=== PATIENT | female | born 1995 | race Caucasian/White ===

== ENCOUNTER 2022-01-17 16:03 | Emergency (ER) | payer MEDICAID, SELFPAY ==
[2022-01-17 16:09] VITALS: BP 149/88; PULSE 136; RESP 18; TEMP 36.8; O2SAT 99
--- NOTE | 2022-01-18 12:51 | NUR.NOTE ---
Nursing Note: Accessed patient chart to determine how many EKG orders were in the chart from the ED. There was an outstanding EKG in ordered status. There are no EKG's in the [employer] system that are outstanding. EKG order was deleted.
--- NOTE | 2022-01-19 08:11 | ED.GENADUL_ITS ---
Discharge Plan Disposition Patient Disposition: Against Medical Advise Condition: Stable Discharge Details Clinical Impression: Abscess Primary Care Provider: Unknown,Unknown ED Provider: Verónica Hagan Home Meds and New Rx's Prescriptions: New doxycycline hyclate 100 mg tablet 100 mg PO BID Qty: 20 0RF Discharge Instructions Instructions: Abscess (ED) Additional Instructions: warm compresses antibiotic until completed recheck in 48 hours if no improvement or worsening return earlier with new or worsening complaints Referrals: Laura Freeman [Emergency Nurse] - Discharge Data Discharge Date/Time-TO BE ENTERED AT DEPARTURE: 01/17/22 17:07 Medical Decision Making Of note, patient was quite tachycardic, she does endorse using cocaine this morning. She denies any chest pain or shortness of breath Tachycardia I did recommend an EKG and laboratory work, she has declined fully alert, oriented, of decisional capacity That she also refused to wait for an incision and drainage, she was placed on antibiotics and will return at her earliest ability Return precautions zay and patient expressed understanding Medical Records Medical records reviewed: Yes I reviewed the patient's medical records. Lab Data Lab results reviewed: Yes I reviewed the patient's lab results. Sign Out No HPI General Date/Time Provider Initiated Documentation: 01/17/22 16:32 . HPI Narrative: This 26-year-old female presents with left-sided facial swelling. She states it started approximately a week ago. She denies any fever or chills. She states she developed swelling to her left eyelid and left side of her face yesterday. She declined having been on recent antibiotics. She has not attempted any interventions. She describes a burning discomfort to affected area. She denies any illicit drug use. Related Data Home Medications Medication Instructions Recorded Confirmed doxycycline hyclate 100 mg tablet 100 mg PO BID #20 tabs 01/17/22 Previous Rx's Medication Instructions Recorded doxycycline hyclate 100 mg tablet 100 mg PO BID #20 tabs 01/17/22 Allergies Allergy/AdvReac Type Severity Reaction Status Date / Time No Known Allergies Allergy Unverified 01/17/22 16:19 General Stated Complaint: FacialProb ANDREW: 4 Review of Systems Narrative: Review of systems obtained x7 and negative aside from indication PFSH All Active Problems (Updated 01/17/22 @ 17:02 by GILLIAN [place]) Abscess (Acute) Social History Smoking/Tobacco Use Status: Current every day Tobacco Type: cigarettes Smoking risk assessment performed?: Yes Alcohol Intake: current Alcohol Intake frequency: a few times a month Alcohol type: hard liquor Drug use: Daily Substance use type: marijuana Do you feel safe at home: Yes Do you feel safe in your relationship?: Yes Exam Const General: cooperative, comfortable and no acute distress Eyes Pupils: PERRL Other: Swelling noted to left periorbital region, no erythema or proptosis, extraocular muscles intact, approximately 1 inch area of induration with scant fluctuance noted in the region of the palpable, overlying erythema approximately 1 inch without lymphangitis, tenderness to palpation Neck Other: No meningismus Resp Effort & Inspection: normal respiratory effort Auscultation: clear to auscultation bilaterally Cardio Rate: tachycardic Rhythm: regular rhythm Skin General skin exam: no rashes or lesions noted Neuro General: patient alert and patient oriented x3 Course Vital Signs Vital signs: Vital Signs Temperature 36.8 C 01/17/22 16:09 Pulse 136 H 01/17/22 16:09 Respiratory Rate 18 01/17/22 16:09 Blood Pressure 149/88 H 01/17/22 16:09 Pulse Oximetry 99 01/17/22 16:09 Temperature 36.8 C 01/17/22 16:09 Temperature Source Oral 01/17/22 16:09 Pulse 136 H 01/17/22 16:09 Respiratory Rate 18 01/17/22 16:09 Respiratory Effort Non-Labored 01/17/22 16:16 Blood Pressure 149/88 H 01/17/22 16:09 Blood Pressure Position Sitting 01/17/22 16:09 Pulse Oximetry 99 01/17/22 16:09 Oxygen Delivery Method Room Air 01/17/22 16:09 Oxygen Flow Rate 0 01/17/22 16:09 Pain Level 4 01/17/22 16:16 Lab/Test Results Lab/Test Results: Laboratory Tests Range/Units 01/17/22 01/17/22 16:44 16:44 WBC Cancelled RBC Cancelled Hgb Cancelled Hct Cancelled MCV Cancelled MCH Cancelled MCHC Cancelled RDW Cancelled Plt Count Cancelled MPV Cancelled Immature Gran % Cancelled Neutrophils % Cancelled Band Neutrophils % Cancelled Lymphocytes % Cancelled Atypical Lymphs % Cancelled Monocytes % Cancelled Eosinophils % Cancelled Basophils % Cancelled Metamyelocytes % Cancelled Myelocytes % Cancelled Promyelocytes % Cancelled Other Cells % Cancelled Nucleated RBC % Cancelled Absolute Neutrophils Cancelled Absolute Lymphocytes Cancelled Absolute Monocytes Cancelled Absolute Eosinophils Cancelled Absolute Basophils Cancelled RBC Morphology Cancelled Polychromasia Cancelled Hypochromasia Cancelled Poikilocytosis Cancelled Basophilic Stippling Cancelled Anisocytosis Cancelled Microcytosis Cancelled Macrocytosis Cancelled Spherocytes Cancelled Tear Drop Cells Cancelled Ovalocytes Cancelled Stomatocytes Cancelled Langley-Cantu Addition Bodies Cancelled Nik Cells/Echinocytes Cancelled Acanthocytes (Spur) Cancelled Schistocytes Cancelled Sodium Cancelled Potassium Cancelled Chloride Cancelled Carbon Dioxide Cancelled Anion Gap Cancelled BUN Cancelled Creatinine Cancelled Est GFR (CKD-EPI 2020) Cancelled Glucose Cancelled Calcium Cancelled Total Bilirubin Cancelled AST Cancelled ALT Cancelled Alkaline Phosphatase Cancelled Total Protein Cancelled Albumin Cancelled TSH Cancelled PAWSS Have you Been Recently Intoxicated or Drunk Within the Last 30 days?: Yes Have you Ever Experienced Previous Episodes of Alcohol Withdrawal?: No Have you ever Experienced Withdrawal Seizures?: No Have you ever Experienced Delirium Tremens(DT)s?: No Have you ever undergone Alcohol Rehabilitation Treatment (i.e, inpt ot outpatient treatment programs)?: No Have you ever Experienced Blackouts?: Yes Have you ever Combined Alcohol with other Downers within the last 90 days?: No Have you ever Combined Alcohol with any other Substance of Abuse during the last 90 days?: No Positive Blood Alcohol level on Presentation? [PCS.BAL]: No Evidence of Increased Autonomic Activity (i.e. HR>120, tremor, sweating, agitation, nausea)?: No Result: 2
== END 2022-01-17 17:07 | disposition left against medical advice (07) ==
PROVIDERS: Emergency Provider Physician Assistant
DX: L02.01 Cutaneous abscess of face (principal); R00.0 Tachycardia, unspecified; F14.10 Cocaine abuse, uncomplicated; Z53.29 Procedure and treatment not carried out because of patient's decision for other reasons
CPT/HCPCS: 80053; 99283; 84443; 85025